=== PATIENT | female | born 1980 | race Caucasian/White ===

== ENCOUNTER 2025-07-06 14:17 | Observation (INO) | payer BC ==
[2025-07-06 15:24] LABS: GLUCOSE,URINE NEGATIVE (NEGATIVE); OCCULT BLOOD,URINE NEGATIVE (NEGATIVE)
[2025-07-06 15:29] LABS: APPEARANCE,URINE HAZY
[2025-07-06] MEDS ORDERED: Sodium Chloride 0.9% 2.5 ML Syringe FLUSH PRN ×2 (15:30→21:28)
[2025-07-06] MEDS ORDERED: Sodium Chloride 0.9% 10 ML Syringe FLUSH PRN ×2 (15:30→21:28)
[2025-07-06 15:37] LABS: EPITHELIAL CELLS,URINE MODERATE (NONE-FEW)
[2025-07-06] MEDS: Ketorolac 30 MG/ML SDV IVPUSH ONE (15:51)
[2025-07-06] MEDS: Ondansetron 4 MG/2 ML SDV IVPUSH ONE (15:51)
[2025-07-06 16:01] LABS: BASOPHILS ABSOLUTE AUTO 0.07 K/uL (0.00-0.20); BASOPHILS PERCENT AUTO 0.6 % (0.0-1.0); EOSINOPHILS ABSOLUTE AUTO 0.10 K/uL (0.00-0.45); EOSINOPHILS PERCENT AUTO 0.9 % (0.0-6.0); IMMATURE GRAN ABSOLUTE AUTO 0.11 K/uL (0.00-0.05); IMMATURE GRAN PERCENT AUTO 1.0 % (0.0-0.4); LYMPHOCYTES ABSOLUTE AUTO 1.89 K/uL (1.00-4.80); LYMPHOCYTES PERCENT AUTO 17.0 % (24.0-44.0); MEAN PLATELET VOLUME 9.3 fL (9.4-12.3); MONOCYTES ABSOLUTE AUTO 0.81 K/uL (0.00-0.80); MONOCYTES PERCENT AUTO 7.3 % (0.0-8.0); NEUTROPHILS ABSOLUTE AUTO 8.17 K/uL (1.80-7.70); NEUTROPHILS PERCENT AUTO 73.2 % (41.0-71.0); NRBC ABSOLUTE 0.00 K/uL (0.00-0.02); NRBC PERCENT 0.0 /100WBC (0.0-0.2); PLATELET COUNT,PLT 219 K/uL (150-400); RED BLOOD CELL COUNT 4.64 M/uL (4.10-5.30); WHITE BLOOD CELL COUNT,WBC 11.15 K/uL (3.9-11.3)
[2025-07-06 16:24] LABS: A/G RATIO 1.0 (0.9-1.6); ALANINE AMINOTRANSFERASE,ALT 359.0 IU/L (14-63); ASPARTATE AMNIOTRANSFERASE,AST 301.0 IU/L (15-37); BILIRUBIN TOTAL 3.3 mg/dL (0.2-1.0); BLOOD UREA NITROGEN,BUN 9.0 mg/dL (7.0-18.0); CARBON DIOXIDE,CO2 27.1 mmol/L (21.0-32.0); CHLORIDE,CL 99.0 mmol/L (98-107); CREATININE 0.7 mg/dL (0.6-1.0); EST CRCL DRUG DOSING (CG) 103.46 mL/min; GLUCOSE RANDOM 135.0 mg/dL (74-106); POTASSIUM,K 3.9 mmol/L (3.5-5.1); PROTEIN TOTAL,TP 7.5 g/dL (6.4-8.2); SODIUM,NA 135.0 mmol/L (136-145)
[2025-07-06 16:27] LABS: ESTIMATED GFR 109.0 mL/min (>60)
[2025-07-06] MEDS ORDERED: Naloxone 0.4 MG/ML SDV IVPUSH PRN (21:28)
[2025-07-07] MEDS: Ondansetron 4 MG/2 ML SDV IVPUSH PRN (00:22)
[2025-07-07 05:56] LABS: BASOPHILS ABSOLUTE AUTO 0.05 K/uL (0.00-0.20); BASOPHILS PERCENT AUTO 0.7 % (0.0-1.0); EOSINOPHILS ABSOLUTE AUTO 0.15 K/uL (0.00-0.45); EOSINOPHILS PERCENT AUTO 2.2 % (0.0-6.0); IMMATURE GRAN ABSOLUTE AUTO 0.02 K/uL (0.00-0.05); IMMATURE GRAN PERCENT AUTO 0.3 % (0.0-0.4); LYMPHOCYTES ABSOLUTE AUTO 1.69 K/uL (1.00-4.80); LYMPHOCYTES PERCENT AUTO 24.5 % (24.0-44.0); MEAN PLATELET VOLUME 9.8 fL (9.4-12.3); MONOCYTES ABSOLUTE AUTO 0.47 K/uL (0.00-0.80); MONOCYTES PERCENT AUTO 6.8 % (0.0-8.0); NEUTROPHILS ABSOLUTE AUTO 4.53 K/uL (1.80-7.70); NEUTROPHILS PERCENT AUTO 65.5 % (41.0-71.0); NRBC ABSOLUTE 0.00 K/uL (0.00-0.02); NRBC PERCENT 0.0 /100WBC (0.0-0.2); PLATELET COUNT,PLT 137 K/uL (150-400); RED BLOOD CELL COUNT 3.73 M/uL (4.10-5.30); WHITE BLOOD CELL COUNT,WBC 6.91 K/uL (3.9-11.3)
[2025-07-07 06:28] LABS: A/G RATIO 1.0 (0.9-1.6); ALANINE AMINOTRANSFERASE,ALT 314.0 IU/L (14-63); ASPARTATE AMNIOTRANSFERASE,AST 208.0 IU/L (15-37); BILIRUBIN TOTAL 1.8 mg/dL (0.2-1.0); BLOOD UREA NITROGEN,BUN 9.0 mg/dL (7.0-18.0); CARBON DIOXIDE,CO2 28.8 mmol/L (21.0-32.0); CHLORIDE,CL 105.0 mmol/L (98-107); CREATININE 0.7 mg/dL (0.6-1.0); EST CRCL DRUG DOSING (CG) 103.46 mL/min; GLUCOSE RANDOM 142.0 mg/dL (74-106); POTASSIUM,K 3.6 mmol/L (3.5-5.1); PROTEIN TOTAL,TP 6.1 g/dL (6.4-8.2); SODIUM,NA 138.0 mmol/L (136-145)
[2025-07-07 06:31] LABS: ESTIMATED GFR 109.0 mL/min (>60)
[2025-07-07] MEDS: Acetaminophen/oxyCODONE 325-5 MG Tab PO PRN (14:57)
[2025-07-07 16:37] VITALS: BP 123/68; PULSE 78
== END 2025-07-07 16:45 | disposition home or self-care (01) ==
LOC: MW.ED 14:17 → MW.MS 21:31
PROVIDERS: ADMIT Internal Medicine; ATTEND Surgery
DX: K80.00 Calculus of gallbladder with acute cholecystitis without obstruction (principal); N39.0 Urinary tract infection, site not specified; K59.00 Constipation, unspecified; D72.829 Elevated white blood cell count, unspecified; R74.01 Elevation of levels of liver transaminase levels; R10.811 Right upper quadrant abdominal tenderness; Z53.8 Procedure and treatment not carried out for other reasons
CPT/HCPCS: 36415; 74181; 76705; 80053; 81001; 81025; 83690; 83735; 85025; 96361; 96365; 96366; 96375; 96376; 99285; A9270; G0378; J1171; J1885; J2405; J2543; J7030; 99284

== ENCOUNTER 2025-08-20 10:46 | Day surgery (SDC) | payer BC ==
[~2025-08-20 10:46] MED LIST: Albuterol 0.083% 2.5 MG/3 ML Neb Soln NEB PRN; Naloxone 0.4 MG/ML SDV IVPUSH PRN; Scopalamine 1mg/3day Transdermal Patch TOP ONE; fentaNYL 50 MCG/ML SDV IVPUSH PRN
[2025-08-20] MEDS ORDERED: Midazolam 1 MG/ML 2 ML SDV ONE ×2 (11:07→13:23)
[2025-08-20] MEDS ORDERED: fentaNYL 100 MCG/2 ML SDV ONE ×2 (11:07→14:13)
[2025-08-20] MEDS ORDERED: Propofol 200 MG/20 ML SDV ONE (11:07)
[2025-08-20] MEDS ORDERED: dexmedeTOMIDine HCl 200 MCG/2 ML SDV ONE (11:08)
[2025-08-20] MEDS ORDERED: Ropivacaine 0.5% 5 MG/ML 30 ML SDV ONE (11:14)
[2025-08-20] MEDS: Lactated Ringers 1,000 ML IV SCH (11:15)
[2025-08-20] MEDS ORDERED: Indocyanine Green 25 MG SDV ONE ×2 (11:21→15:52)
[2025-08-20] MEDS: Scopalamine 1mg/3day Transdermal Patch TOP ONE (11:45)
[2025-08-20] MEDS ORDERED: propofoL 500 MG/50 ML 50 ML ONE (15:50)
[2025-08-20] MEDS ORDERED: Ketorolac 30 MG/ML SDV ONE (16:37)
[2025-08-20] MEDS: Ondansetron 4 MG/2 ML SDV IVPUSH PRN (17:34)
[2025-08-20 17:44] VITALS: BP 132/75; PULSE 73
[2025-08-20] MEDS: Scopalamine 1mg/3day Transdermal Patch ONE (18:59)
[2025-08-20] MEDS: ceFAZolin 2 GM in Water For Injection, Sterile 20 ML IVPUSH ONE (18:59)
== END 2025-08-20 20:00 | disposition home or self-care (01) ==
LOC: MW.SDS 10:46 → MW.MS 18:23 → MW.SDS 20:00
PROVIDERS: ATTEND Surgery
DX: K80.10 Calculus of gallbladder with chronic cholecystitis without obstruction (principal); K82.8 Other specified diseases of gallbladder; I10 Essential (primary) hypertension; E66.3 Overweight; F17.290 Nicotine dependence, other tobacco product, uncomplicated; Z68.28 Body mass index [BMI] 28.0-28.9, adult; Z79.899 Other long term (current) drug therapy
CPT/HCPCS: 47562; 64488; 81025; A9270; J0665; J1171; J1885; J2003; J2250; J2405; J2704; J2795; J3010; J7120; 00790; J3490